=== PATIENT | male | born 1995 | race Caucasian/White ===

== ENCOUNTER 2017-10-09 16:40 | Emergency (ER) | payer BC ==
[2017-10-09 17:31] VITALS: BP 155/93
--- NOTE | 2017-10-09 17:41 | ED ---
Throat Pain/Nasal Congestion - HPI Summary HPI Summary: 22 yr old male with cough for over a week, and today has sore throat and also earache. He has been coughing hard. Pain in throat and ear moderate. No drooling, no stridor, no trouble breathing. No other complaints. - History of Current Complaint Chief Complaint: UCRespiratory Time Seen by Provider: 10/09/17 17:28 - Allergies/Home Medications Allergies/Adverse Reactions: Allergies Allergy/AdvReac Type Severity Reaction Status Date / Time MS Clindamycin Allergy Mild Rash Verified 10/09/17 17:31 [From Cleocin HCl] MS Erythromycin Allergy Mild Rash Verified 10/09/17 17:31 [Erythromycin] Nuts Allergy Severe Swelling Uncoded 10/09/17 17:31 Of Face,Lips,& Throat PMH/Surg Hx/FS Hx/Imm Hx Respiratory History: Reports: Hx Asthma Infectious Disease History: No Infectious Disease History: Denies: Traveled Outside the [place] in Last 30 Days - Family History Known Family History: Positive: None - Social History Occupation: Student Lives: With Family Alcohol Use: Rare Substance Use Type: Reports: None Smoking Status (MU): Never Smoked Tobacco Review of Systems Positive: Fatigue Positive: Sore Throat, Ear Ache Positive: Cough All Other Systems Reviewed And Are Negative: Yes Physical Exam Triage Information Reviewed: Yes Vital Signs On Initial Exam: Initial Vitals Temp Pulse Resp BP Pulse Ox 98.5 F 95 16 155/93 100 10/09/17 17:24 10/09/17 17:24 10/09/17 17:24 10/09/17 17:24 10/09/17 17:24 Vital Signs Reviewed: Yes Appearance: Positive: Well-Appearing, No Pain Distress Skin: Positive: Warm, Skin Color Reflects Adequate Perfusion Head/Face: Positive: Normal Head/Face Inspection Eyes: Positive: EOMI ENT: Positive: Pharyngeal erythema, TM red - right with effusion Neck: Positive: Nontender Respiratory/Lung Sounds: Positive: Clear to Auscultation, Breath Sounds Present Cardiovascular: Positive: Normal, RRR. Negative: Murmur Abdomen Description: Positive: Nontender Musculoskeletal: Positive: Strength/ROM Intact Neurological: Positive: Sensory/Motor Intact, Alert, Oriented to Person Place, Time, CN Intact II-III Psychiatric: Positive: Normal - Lázaro Coma Scale Best Eye Response: 4 - Spontaneous Best Motor Response: 6 - Obeys Commands Best Verbal Response: 5 - Oriented Coma Scale Total: 15 Diagnostics - Vital Signs Vital Signs Temp Pulse Resp BP Pulse Ox 10/09/17 17:24 98.5 F 95 16 155/93 100 - Laboratory Lab Statement: Any lab studies that have been ordered have been reviewed, and results considered in the medical decision making process. EENT Course/Dx - Course Course Of Treatment: 22 yr old with right OM and also a sore throat. Plan DC to home on Augmentin. Fu with PMD. - Diagnoses Provider Diagnoses: Pharyngitis, Otitis media Discharge - Discharge Plan Condition: Good Disposition: HOME Prescriptions: Amoxicillin/Clavulanate TAB* [Augmentin TAB 875*] 875 mg PO BID #20 tab Patient Education Materials: Ear Infection (ED), Pharyngitis (ED) Forms: *Work Release, *School Release Referrals: Brice Burris DO [Primary Care Provider] -
== END 2017-10-09 17:47 | disposition home or self-care (01) ==
LOC: UCCORT 16:40
DX: J02.9 Acute pharyngitis, unspecified (principal); H66.91 Otitis media, unspecified, right ear; R53.83 Other fatigue; R05 Cough; J45.909 Unspecified asthma, uncomplicated; Z88.1 Allergy status to other antibiotic agents; Z91.018 Allergy to other foods
CPT/HCPCS: 99212; G0463

== ENCOUNTER 2019-11-12 19:29 | Emergency (ER) | payer OTHER ==
[2019-11-12 22:01] VITALS: BP 134/78
[2019-11-12 22:19] LABS: Influenza A Molecular Negative (Negative); Influenza B Molecular Negative (Negative)
--- NOTE | 2019-11-12 22:19 | UC ---
FLU HPI - HPI Summary HPI Summary: 24-year-old male presents with 4 day history of general malaise, fatigue, headache, body aches, nasal congestion, sinus pressure, nasal drip, mild shortness of breath, nonproductive cough, mild nausea, and couple episodes of loose stool. No measured fever however states has been feeling hot and cold. History of asthma but states he has not had to use his albuterol inhaler. Denies sore throat, dysphagia, ear pain, chest pain, abdominal pain, or vomiting. - History of Current Complaint Chief Complaint: UCRespiratory Stated Complaint: COUGH, CONGESTION Time Seen by Provider: 11/12/19 22:00 Hx Obtained From: Patient Pain Intensity: 6 - Allergy/Home Medications Allergies/Adverse Reactions: Allergies Allergy/AdvReac Type Severity Reaction Status Date / Time almond Allergy Rash, Verified 11/12/19 21:56 Swelling of the Face, Lips, and Throat banana Allergy Anaphylatic Verified 11/12/19 21:56 Shock clindamycin Allergy Rash Verified 11/12/19 21:56 erythromycin base Allergy Rash Verified 11/12/19 21:56 pecan nut Allergy Rash, Verified 11/12/19 21:56 Swelling of the Face, Lips, and Throat walnut Allergy Rash, Verified 11/12/19 21:56 Swelling of the Face, Lips, and Throat Home Medications: Home Medications Albuterol HFA INHALER* [Proair HFA Inhaler*] 2 puff INH Q6H PRN 07/31/12 [ History Confirmed 11/12/19] EPINEPHrine PEN ADULT(NF) [Epipen*] 0.3 mg IM ONCE 07/31/12 [History Confirmed 11/12/19] Albuterol 2.5MG/3ML (0.083%)* [Ventolin 2.5 MG/3 ML NEB.LANDRY*] 2.5 mg INH Q6H PRN 11/12/19 [History Confirmed 11/12/19] PMH/Surg Hx/FS Hx/Imm Hx Respiratory History: Asthma - Surgical History Surgical History: Yes Surgery Procedure, Year, and Place: T&A, ~2006, [place] - Family History Family History: Denies significant FMH - Social History Occupation: Employed Full-time Lives: With Family Alcohol Use: Occasionally Substance Use Type: None Smoking Status (MU): Current Some Day Smoker - Immunization History Vaccination Up to Date: Yes Review of Systems All Other Systems Reviewed And Are Negative: Yes Constitutional: Positive: Fever - Subjective, Chills, Fatigue Skin: Negative: Rash Eyes: Negative: Drainage, Eye Redness ENT: Positive: Sore Throat, Nasal Discharge, Sinus Congestion, Sinus Pain/ Tenderness. Negative: Ear Ache Respiratory: Positive: Shortness Of Breath, Cough Cardiovascular: Negative: Chest Pain Gastrointestinal: Positive: Diarrhea, Nausea. Negative: Abdominal Pain, Vomiting Genitourinary: Positive: Negative Musculoskeletal: Positive: Myalgia Neurological/Mental Status: Positive: Headache Is Patient Immunocompromised?: No Physical Exam - Summary Physical Exam Summary: GENERAL APPEARANCE: Well developed, well nourished, alert and cooperative, and appears to be in no acute distress. EYES: Conjunctiva clear. No drainage. EARS: External auditory canals and tympanic membranes clear, hearing grossly intact. NOSE: Moderate nasal congestion. No nasal discharge. Maxillary sinus tenderness. THROAT: Pharyngeal cobblestoning with postnasal drip. Surgically absent tonsils. Uvula midline. NECK: Neck supple, non-tender without lymphadenopathy. CARDIAC: Normal S1 and S2. No S3, S4 or murmurs. Rhythm is regular. There is no peripheral edema, cyanosis or pallor. Extremities are warm and well perfused. Capillary refill is less than 2 seconds. Peripheral pulses intact. LUNGS: Clear to auscultation without rales, rhonchi, wheezing or diminished breath sounds. Dry nonproductive cough. ABDOMEN: Positive bowel sounds. Soft, nondistended, nontender. No guarding or rebound. No masses or hepatosplenomegally. MUSKULOSKELETAL: ROM intact to all extremities. No joint erythema or tenderness. Normal muscular development. Normal gait. SKIN: Skin normal color, texture and turgor with no lesions or eruptions. Triage Information Reviewed: Yes Vital Signs: Initial Vital Signs Temp 97.6 F 11/12/19 21:52 Pulse 72 11/12/19 21:52 Resp 18 11/12/19 21:52 BP 134/78 11/12/19 21:52 Pulse Ox 99 11/12/19 21:52 Vital Signs Reviewed: Yes Flu Course/Dx - Course Course Of Treatment: 24-year-old male presents with 4 day history of general malaise, fatigue, headache, body aches, nasal congestion, sinus pressure, nasal drip, mild shortness of breath, nonproductive cough, mild nausea, and couple episodes of loose stool. No measured fever however states has been feeling hot and cold. History of asthma but states he has not had to use his albuterol inhaler. Denies sore throat, dysphagia, ear pain, chest pain, abdominal pain, or vomiting. Afebrile. Vital signs stable. Patient had moderate nasal congestion , normal TMs, pharyngeal cobblestoning or postnasal drip, no cervical lymphadenopathy, clear bilateral breath sounds, dry nonproductive cough, and otherwise unremarkable exam. Rapid flu test was negative. Reviewed results with the patient. Recommending symptomatic treatment for a viral upper respiratory infection. He is to follow-up with his primary care provider in 5- 7 days if symptoms are not improving. Anticipatory guidance and warning symptoms reviewed of the patient. Verbalizes understanding and agrees with plan of care. - Differential Dx/Diagnosis Differential Diagnosis/HQI/PQRI: Bronchitis, Influenza, Pneumonia, Upper Respiratory Infection Provider Diagnosis: Viral URI Discharge ED - Sign-Out/Discharge Documenting (check all that apply): Patient Departure All imaging exams completed and their final reports reviewed: No Studies - Discharge Plan Condition: Stable Disposition: HOME Patient Education Materials: Upper Respiratory Infection (ED) Referrals: Brice Burris DO [Primary Care Provider] - Additional Instructions: A rapid flu test performed in the clinic today was negative. Your history and exam are consistent with a viral upper respiratory infection. Viral infections do not respond to antibiotics and are limited to the treatment of symptoms. Viral infections typically run their course in 7-10 days. Drink plenty of fluids to avoid dehydration especially if you are running any fever. Use a saline rinse kit such as Neti Pot or NeilMed at least twice a day to help thin secretions and promote drainage of the sinuses. Use fluticasone (Flonase) nasal spray 2 sprays each nostril once daily. Take over the counter acetaminophen (Tylenol) or ibuprofen (Advil, Motrin) according to directions as needed for pain or fever. Use salt water gargles several times a day if you have a sore throat. You may also use Chloraseptic spray or Cepacol lonzenges according to directions which contain a numbing medication and can provide some temporary relief from your sore throat. Follow up with your primary care provider in 5-7 days if symptoms persist. Seek immediate medical attention in the emergency room if you have fever greater than 100.5 F despite taking acetaminophen or ibuprofen, have chest pain , difficulty breathing, are unable to swallow, or have any worsening of symptom - Billing Disposition and Condition Condition: STABLE Disposition: Home - Attestation Statements Provider Attestation: This patient was not seen by me. I was available for consult. Chart reviewed. GISELL
== END 2019-11-12 22:38 | disposition home or self-care (01) ==
LOC: UCCORT 19:29
DX: J06.9 Acute upper respiratory infection, unspecified (principal); J45.909 Unspecified asthma, uncomplicated; F17.200 Nicotine dependence, unspecified, uncomplicated; Z88.1 Allergy status to other antibiotic agents; Z91.010 Allergy to peanuts; Z91.018 Allergy to other foods
CPT/HCPCS: 99211; G0463

== ENCOUNTER 2019-12-09 12:48 | Emergency (ER) | payer OTHER ==
--- OUTSIDE RECORDS SUMMARY | 2019-12-09 12:55 | XMS REPORT | Continuity of Care Document ---
:1995 External Reference #:[id number] Author Name Brice Burris D.O. (transmitted by agent of provider Lyudmila Guzmán) Address [address] [place] [id number] Problems Active Problems Provider Date Vitamin D deficiency Jose Miguel White M.D. Onset: 02/13/2013 Pure hypercholesterolemia Jose Miguel White M.D. Onset: 02/13/2013 Allergic rhinitis Jose Miguel White M.D. Onset: 02/13/2013 Intrinsic asthma without status asthmaticus Jose Miguel White M.D. Onset: Obesity Jose Miguel White M.D. Onset: 02/13/2013 Mild intermittent asthma Brice Burris D.O. Onset: 12/11/2016 Backache Angelique Wylie PA Onset: 03/09/2017 Social History Type Date Description Comments Sex Unknown Tobacco Use Reviewed: 07/01/19 Denies Cigarette Use Cigarette Use passive smoke exposure from mom Smoking Status Reviewed: 09/11/19 Denies Cigarette Use ETOH Use 02/13/2013 Denies alcohol use Recreational Drug Use 02/13/2013 Denies Drug Use Tobacco Use Start: Unknown Non Smoker Sun Exposure Uses sunscreen Sun Exposure somethimes Seat Belt/Car Seat Seat Belt Use - Yes Bike Helmet Never Guns in Home Yes, Locked Up Smoke Alarms Yes smoke alarm Allergies, Adverse Reactions, Alerts Active Allergies Reaction Severity Comments Date Cleocin rash 02/13/2013 Amoxicillin rash 02/13/2013 Bananas 07/01/2019 Medications Active Medications SIG Qnty Indications Ordering Date Provider Hydroxyzine HCL 1 by mouth as 60tabs F43.23 Roseline Beltran 08/11/2019 needed for demetris Gonsales MD 25mg Tablets attacks, may increase to 2 if needed Epinephrine use as directed for 2units Cindy 12/24/2018 anaphylactic Boone Gillespie 0.3mg/0.3ML reactions Solution Auto-Inject Flonase Allergy 2 sprays twice a 47.400ml J01.00 Brice Burris, 2016 Relief day until better. D.O. 50mcg/Act Suspension J30.9 Albuterol Sulfate inhale the 50units J45.21 Jose Miguel White, 01/11/2014 (2.5mg/3ML) contents of 1 M.D. 0.083% Nebulizer nebule up to every 4 hours as needed for cough, wheezing, sob Levocetirizine Take 1 Tablet By 90tabs J30.9 Jose Miguel White, 08/17/2012 Dihydrochloride Mouth Every Day as M.D. 5mg Tablets Needed For Allergies Ventolin HFA inhale 2 puffs 18gm J45.20 Jose Miguel White, 05/26/2012 108(90Base) every 4 hours if M.D. mcg/Act Aerosol needed for asthma symptoms J45.21 Advair HFA 115-21mcg/Act Aerosol Unknown History Medications Escitalopram Oxalate 1.5 by mouth every 45tabs F43.23 Cindy, 08/04/2019 - day Boone Gillespie 08/24/2019 10mg Tablets Escitalopram Oxalate 1 tab every 14tabs F43.23 Cindy, 07/17/2019 - morning for Boone Gillespie 08/04/2019 5mg Tablets depression x 3 days, if tolerating, increase to two tabs in the morning Oseltamivir 1 capsule by mouth 10caps Unknown 07/08/2019 - Phosphate twice daily x 5 07/13/2019 75mg days Capsules Prednisone TK 1 T PO bid Unknown 07/08/2019 - 20mg 07/12/2019 Tablets Azithromycin 2 tabs day one and 6tabs Cindy, 07/08/2019 - 250mg 1 tab days 2-5 Boone Gillespie 07/14/2019 Tablets Azithromycin 2 tabs by mouth 6tabs J20.9 Cindy, 07/01/2019 - 250mg daily x1 day then Boone Gillespie 07/07/2019 Tablets 1 tab by mouth daily x4 days Prednisone 2 tab by mouth 10tabs J45.901 Cindy, 07/01/2019 - 20mg daily x5 days Boone Gillespie 07/09/2019 Tablets Immunizations CPT Code Status Date Vaccine Lot # [id number] Given 07/17/2019 Influenza Virus Vaccine, Quadrivalent, Split, [id number] Preservative Free 64721 Given 04/23/2017 Influenza Virus Vaccine, Quadrivalent, Split, [id number] Preservative Free 10520 Given 06/12/2016 Influenza Virus Vaccine, Quadrivalent, Split, [id number] Preservative Free 44647 Given 06/15/2015 Influenza Virus Vaccine, Quadrivalent, Split, [id number] Preservative Free 31431 Given 07/14/2014 Influenza Virus Vaccine, Quadrivalent, Split, [id number] Preservative Free 93814 Given 07/14/2014 Hep A, Ped/Adolscent, 2 Dose [id number] 78645 Given 06/15/2013 Hep A, Ped/Adolscent, 2 Dose [id number] 27598 Given 06/15/2013 Menactra Menningitis Vaccine [id number] 97237 Given 06/15/2013 Flu, Split Virus 3Yrs [id number] 62843 Given 02/13/2013 Gardasil HPV vaccine [id number] 31030 Given 09/22/2012 Pneumococcal Immunization 91957 Given 06/12/2012 Flu, Split Virus 3Yrs 51693 Given 05/03/2011 Flu, Split Virus 3Yrs 99922 Given 07/05/2010 Flu, Split Virus 3Yrs 15028 Given 07/04/2009 Flu, Split Virus 3Yrs 51142 Given 07/08/2008 Flu, Split Virus 3Yrs 21795 Given 04/22/2008 Menactra Menningitis Vaccine 76466 Given 04/22/2008 Adacel or Boostrix, [id number] 67787 Given 08/05/2007 Flu, Split Virus 3Yrs 54300 Given 06/28/2006 Flu, Split Virus 3Yrs 74900 Given 07/27/2003 Flu, Split Virus 3Yrs 92082 Given 04/10/2001 Poliomyelitis Immunization 66751 Given 04/10/2001 MMR Virus Immunization 04104 Given 04/10/2001 Dtap Immunization (Tripedia) (Infanrix) 27812 Given 05/24/1998 Poliomyelitis Immunization 78265 Given 05/24/1998 Dtap Immunization (Tripedia) (Infanrix) 96941 Given 02/02/1998 Varicella (Chicken Pox) Immunization 38432 Given 02/02/1998 MMR Virus Immunization 01773 Given 04/06/1997 Hep B Immunization, Ped/Adolescent To 11 Yrs 52199 Given 04/06/1997 Dtap Immunization (Tripedia) (Infanrix) 98071 Given 04/04/1997 3 dose Hib (PRP-Omp) 79019 Given 02/09/1997 Dtap Immunization (Tripedia) (Infanrix) 09611 Given 02/09/1997 3 dose Hib (PRP-Omp) 72730 Given 02/09/1997 Poliomyelitis Immunization 80143 Given 1996 Hep B Immunization, Ped/Adolescent To 11 Yrs 78904 Given 1996 Poliomyelitis Immunization 54968 Given 1996 Dtap Immunization (Tripedia) (Infanrix) 90491 Given 1996 3 dose Hib (PRP-Omp) 69735 Given 1996 Hep B Immunization, Ped/Adolescent To 11 Yrs 25063 Refused 06/15/2013 Gardasil HPV vaccine Vital Signs Date Vital Result Comment 11/20/2019 9:42am BP Systolic 130 mmHg BP Diastolic 96 mmHg Body Temperature 97.6 F Weight 201.50 lb 09/11/2019 12:56pm BP Systolic 132 mmHg BP Diastolic 82 mmHg Height 71.25 inches 5'11.25" w/shoes Weight 201.00 lb w/shoes BMI (Body Mass Index) 27.8 kg/m2 Results Test Acquired Date Facility Test Result H/L Range Note Rapid Influenza 11/12/2019 [facility] Influenza A Negative Negative A & B Molecular [phone] Molecular Influenza B Molecular Negative Negative 1 Laboratory test 09/08/2019 [facility] TSH (Thyroid 1.09 mcIU/mL Normal 0.34-5.60 finding [phone] Stim Horm) Thyroxine 7.62 g/dL Normal 6.09-12.23 T3 Total 111 ng/dL Normal 87-178 T3 Free 3.40 pg/mL Normal 2.5-3.9 Laboratory 07/08/2019 [facility] Lactic 2.5 Critical 0.4- 1.9 2, 3 test finding LABORATORY Acid mmol/L high [phone] Lactic Acid 07/08/2019 Pending Sale To [facility]. Lactic 2.0 Critical 0.4- 1.9 LABORATORY Acid mmol/L high [phone] Lab Reflex >2.0 for Sepsis? Y CBC 07/08/2019 Pending Sale To [facility]. White Blood Count 7.4 K/uL Normal 3.4-10.5 LABORATORY [phone] Red Blood Count 4.88 M/uL Normal 4.20-5.80 Hemoglobin 13.3 gm/dL Normal 12.8-17.0 Hematocrit 42.0 % Normal 38.0-48.0 Mean Cell Volume 86.1 fl Normal 80.0-96.0 Mean Corpuscular HGB 27.3 pg Normal 27.0-33.0 Mean Corpuscular HGB Conc 31.7 g/dL Normal 31.7-36.0 Platelet Count 366 K/uL High 155-360 Red Cell Distri Width SD 44.7 fl Normal 36-51 Red Cell Distri Width %CV 14.1 % Normal 11.6-15.8 Mean Platelet Volume 10.5 fl Normal 6.6-10.6 NRBC % 0.0 /100WBC < 10/ 100 WBC Basic Metabolic 07/08/2019 Pending Sale To [facility] Glucose 116 mg/dL High 74-106 Panel LABORATORY [phone] BUN 11 mg/dL Normal 7-18 Creatinine 0.8 mg/dL Normal 0.6-1.3 Glom Filtration Rate, Estimate >60 mL/min >60 If >60 mL/min >60 4 BUN/Creat 13.7 ratio Sodium 139 mmol/L Normal 136-145 Potassium 4.1 mmol/L Normal 3.5-5.1 Chloride 107 mmol/L Normal 98-107 Carbon Dioxide 25 mmol/L Normal 21-32 Anion Gap 7 mEq/L Low 8-16 Calcium 8.8 mg/dL Normal 8.5-10.1 Differential-WBC 07/07/2019 Pending Sale To [facility] Total Cells 100 #CELLS Confirm LABORATORY Counted [phone] Neutrophils% 68 % Normal 33-73 Lymph% 24 % Normal 20-42 Monocyte% 8 % Normal 0-10 Platelet Estimate NORMAL Toxic Granulation 0-1+ Laboratory test 07/07/2019 Pending [facility] To [facility]. Slide Review DIFF ORDERED finding LABORATORY [phone] CBS W/Automated 07/07/2019 Pending Sale To [facility] White Blood 6.3 K/uL Normal 3.4-1 Diff LABORATORY Count 0.5 [phone] Red Blood Count 4.54 M/uL Normal 4.20-5.80 Hemoglobin 12.9 gm/dL Normal 12.8-17.0 Hematocrit 38.8 % Normal 38.0-48.0 Mean Cell Volume 85.5 fl Normal 80.0-96.0 Mean Corpuscular HGB 28.4 pg Normal 27.0-33.0 Mean Corpuscular HGB Conc 33.2 g/dL Normal 31.7-36.0 Platelet Count 307 K/uL Normal 155-360 Red Cell Distri Width SD 43.8 fl Normal 36-51 Red Cell Distri Width %CV 14.2 % Normal 11.6-15.8 Mean Platelet Volume 10.1 fl Normal 6.6-10.6 Neut% 68.5 % Normal 33.0-73.0 Lymph % 17.9 % Low 20.0-42.0 [place] % 13.1 % High 0.0-10.0 Eo% 0.0 % Normal 0.0-6.6 Bas% 0.0 % Normal 0.0-1.1 Immature Grans 0.5 % Normal 0.0-5.0 NRBC % 0.0 /100WBC < 10/ 100 WBC Neut# 4.28 K/uL Normal 1.8-7.0 Lymph # 1.12 K/uL Normal 1.0-4.0 [place] # 0.82 K/uL High 0.0-0.8 Eos # 0.00 K/uL Normal 0.0-0.5 Baso # 0.00 K/uL Normal 0.0-0.1 Immature Grans Absolute 0.03 K/uL NRBC # 0.00 K/uL Basic Metabolic 07/07/2019 Pending Sale To [facility] Glucose 121 mg/dL High 74-106 Panel LABORATORY [phone] BUN 8 mg/dL Normal 7-18 Creatinine 0.9 mg/dL Normal 0.6-1.3 Glom Filtration Rate, Estimate >60 mL/min >60 If >60 mL/min >60 5 BUN/Creat 8.8 ratio Sodium 142 mmol/L Normal 136-145 Potassium 3.8 mmol/L Normal 3.5-5.1 Chloride 111 mmol/L High 98-107 Carbon Dioxide 24 mmol/L Normal 21-32 Anion Gap 7 mEq/L Low 8-16 Calcium 8.6 mg/dL Normal 8.5-10.1 Aot Request 07/07/2019 Pending Sale To [facility]. Aot Request Unable to add te 6 LABORATORY <SEE NOTE> [phone] Tests to be added: lactic acid leve <SEE NOTE> 7 Instructions: pls do if not do <SEE NOTE> 8 Lactic Acid 07/07/2019 [facility] Lactic Acid 3.1 mmol/L Critical 0.4-1.9 LABORATORY high [phone] Lab Reflex >2.0 for Sepsis? N Lactic Acid 07/07/2019 [facility] Lactic Acid 2.9 mmol/L Critical 0.4-1.9 LABORATORY high [phone] Lab Reflex >2.0 for Sepsis? Y Laboratory 07/07/2019 [facility] Lactic 3.1 mmol/L Critical 0.4-1.9 9 test finding LABORATORY Acid high [phone] Laboratory 07/06/2019 [facility] Lactic 2.9 mmol/L Critical 0.4-1.9 test finding LABORATORY Acid high [phone] Lactic Acid 07/06/2019 [facility] Lactic 4.1 mmol/L Critical 0.4-1.9 LABORATORY Acid high [phone] Lab Reflex >2.0 for Sepsis? Y Laboratory 07/06/2019 [facility] Lactic Acid 3.0 mmol/L Critical 0.4-1.9 test finding LABORATORY high [phone] Influenza A/B 07/06/2019 Pending Sale To [facility]. Influenza A POSITIVE Abnormal (Negative 10 Antigen LABORATORY Antigen ) [phone] Influenza B Antigen Negative (Negative) 11 Lactic Acid 07/06/2019 [facility] Lactic Acid 2.4 mmol/L Critical 0.4-1.9 LABORATORY high [phone] Lab Reflex >2.0 for Sepsis? Y Laboratory 07/06/2019 Pending Sale To [facility] Legionella Negative Negative 12 test finding LABORATORY Urinary [phone] Antigen Blood Culture 07/06/2019 Pending Sale To [facility] Blood Culture NO GROWTH: 13, LABORATORY Aerobic FINAL <SEE 14 [phone] NOTE> Blood Culture Anaerobic NO GROWTH: FINAL <SEE NOTE> 15 CBS W/Automated 07/06/2019 Pending Sale To [facility] White 5.9 K/uL Normal 3.4-10.5 16 Diff LABORATORY Blood [phone] Count Red Blood Count 4.99 M/uL Normal 4.20-5.80 Hemoglobin 13.8 gm/dL Normal 12.8-17.0 Hematocrit 42.1 % Normal 38.0-48.0 Mean Cell Volume 84.4 fl Normal 80.0-96.0 Mean Corpuscular HGB 27.7 pg Normal 27.0-33.0 Mean Corpuscular HGB Conc 32.8 g/dL Normal 31.7-36.0 Platelet Count 290 K/uL Normal 155-360 Red Cell Distri Width SD 42.1 fl Normal 36-51 Red Cell Distri Width %CV 13.7 % Normal 11.6-15.8 Mean Platelet Volume 9.8 fl Normal 6.6-10.6 Neut% 73.0 % Normal 33.0-73.0 Lymph % 14.5 % Low 20.0-42.0 [place] % 10.5 % High 0.0-10.0 Eo% 1.0 % Normal 0.0-6.6 Bas% 0.5 % Normal 0.0-1.1 Immature Grans 0.5 % Normal 0.0-5.0 NRBC % 0.0 /100WBC < 10/ 100 WBC Neut# 4.32 K/uL Normal 1.8-7.0 Lymph # 0.86 K/uL Low 1.0-4.0 [place] # 0.62 K/uL Normal 0.0-0.8 Eos # 0.06 K/uL Normal 0.0-0.5 Baso # 0.03 K/uL Normal 0.0-0.1 Immature Grans Absolute 0.03 K/uL NRBC # 0.00 K/uL Comprehensive 07/06/2019 [facility] Glucose 103 mg/dL Normal 74-106 Metabolic Panel LABORATORY [phone] BUN 16 mg/dL Normal 7-18 Creatinine 1.3 mg/dL Normal 0.6-1.3 Glom Filtration Rate, Estimate >60 mL/min >60 If >60 mL/min >60 17 BUN/Creat 12.3 ratio Sodium 138 mmol/L Normal 136-145 Potassium 3.3 mmol/L Low 3.5-5.1 Chloride 107 mmol/L Normal 98-107 Carbon Dioxide 22 mmol/L Normal 21-32 Anion Gap 9 mEq/L Normal 8-16 Calcium 8.5 mg/dL Normal 8.5-10.1 Total Protein 7.4 g/dL Normal 6.4-8.2 Albumin 3.5 g/dL Normal 3.4-5.0 Globulin 3.9 g/dL Normal 1.9-4.3 Alb/Glob 0.9 ratio Bilirubin,Total 0.5 mg/dL Normal 0.2-1.0 Sgot/Ast 11 U/L Low 15-37 18 SGPT/Alt 20 U/L Normal 12-78 Alkaline Phosphatase 75 U/L Normal 45-117 1 Smooth Stucco Resurfacer: [id number] 2 CAP, INFLU A, ACUTE HRF 3 CHECKED CALLED ANKITA Shay WITH LACTIC ACID AT 1003 07/08/19 4 Note: Persistent reduction for 3 months or more in an eGFR <60 mL/min/1.73 m2 defines CKD. Patients with eGFR values >/=60 mL/min/1.73 m2 may also have CKD if evidence of persistent proteinuria is present. The original MDRD equation for estimated GFR is not valid for patients less than 18 years of age. Additional information may be found at www.kdoqi.org. 5 Note: Persistent reduction for 3 months or more in an eGFR <60 mL/min/1.73 m2 defines CKD. Patients with eGFR values >/=60 mL/min/1.73 m2 may also have CKD if evidence of persistent proteinuria is present. The original MDRD equation for estimated GFR is not valid for patients less than 18 years of age. Additional information may be found at www.kdoqi.org. 6 Unable to add tests Tests: lactic acid level Instructions: pls do if not done this AM 7 lactic acid level 8 pls do if not done this AM 9 Specimen slightly Hemolyzed, interpret with caution 10 SOB 11 Please Note: A POSITIVE result for influenza A and/or B antigen does not rule out a co-infection with other pathogens or identify any specific influenza A virus subtype. A NEGATIVE result for influenza A and/or B antigen does not preclude influenza virus infection and should not be the sole basis for treatment or other management decisions, since the antigen present in the specimen may be below the detection limit of the test. A NEGATIVE result is PRESUMPTIVE and it is recommended these results be confirmed by virus culture or an FDA-cleared influenza A and B molecular assay. Method: EatWith Chromatographic immunoassay 12 Presumptive negative for L. pneumophila serogroup 1 antigen in urine, suggesting no recent or current infection. Legionnaires' disease cannot be ruled out since other serogroups and species may also cause disease. 13 CAP, INFLU A, ACUTE HRF 14 NO GROWTH: FINAL REPORT 15 NO GROWTH: FINAL REPORT 16 SOB 17 Note: Persistent reduction for 3 months or more in an eGFR <60 mL/min/1.73 m2 defines CKD. Patients with eGFR values >/=60 mL/min/1.73 m2 may also have CKD if evidence of persistent proteinuria is present. The original MDRD equation for estimated GFR is not valid for patients less than 18 years of age. Additional information may be found at www.kdoqi.org. 18 Values below the stated reference ranges of AST and ALT can be seen in normal populations. Clinical correlation is suggested. Procedures Date Code Description Status 07/17/2019 82199 Brief Emotional/Behav Assessment W/ Scoring Doc Per Completed Standard Inst Medical Devices Description No Information Available Encounters Type Date Location Provider Dx Diagnosis Office Visit 11/20/2019 Main Office Brice Burris, J45.20 Mild intermittent 9:45a D.O. asthma, uncomplicated Office Visit 09/11/2019 Main Office Roseline Beltran, F43.23 Adjustment disorder 12:55p with mixed anxiety and depressed mood Z68.27 Body mass index (BMI) 27.0-27.9, adult Office Visit 08/11/2019 9:00a Main Office Minal Walker F43.23 Adjustment disorder P.A. with mixed anxiety and depressed mood J45.20 Mild intermittent asthma, uncomplicated J30.9 Allergic rhinitis, unspecified Office Visit 07/17/2019 11:20a Main Office Minal Walker, J18.9 Pneumonia, P.A. unspecified organism J45.20 Mild intermittent asthma, uncomplicated J30.9 Allergic rhinitis, unspecified F43.23 Adjustment disorder with mixed anxiety and depressed mood Z23 Encounter for immunization Z13.31 Encounter for screening for depression Office Visit 07/10/2019 3:20p Main Office Minal Walker, J45.901 Unspecified asthma P.A. with (acute) exacerbation J18.9 Pneumonia, unspecified organism I10 Essential (primary) hypertension Office Visit 07/01/2019 2:00p Main Office Angelique Wylie, J45.901 Unspecified asthma PA with (acute) exacerbation J20.9 Acute bronchitis, unspecified Z68.27 Body mass index (BMI) 27.0-27.9, adult Assessments Date Code Description Provider 11/20/2019 J45.20 Mild intermittent asthma, uncomplicated Brice Burris DLeslyO. 09/11/2019 F43.23 Adjustment disorder with mixed anxiety and Roseline Beltran MD depressed mood 09/11/2019 Z68.27 Body mass index (BMI) 27.0-27.9, adult Roseline Beltran MD 08/11/2019 F43.23 Adjustment disorder with mixed anxiety and Minal [place], P.A. depressed mood 08/11/2019 J45.20 Mild intermittent asthma, uncomplicated Minal [place], P.A. 08/11/2019 J30.9 Allergic rhinitis, unspecified Minal [place], P.A. 07/17/2019 J18.9 Pneumonia, unspecified organism Minal [place], P.A. 07/17/2019 J45.20 Mild intermittent asthma, uncomplicated Minal [place], P.A. 07/17/2019 J30.9 Allergic rhinitis, unspecified Minal [place], P.A. 07/17/2019 F43.23 Adjustment disorder with mixed anxiety and Minal [place], P.A. depressed mood 07/17/2019 Z23 Encounter for immunization Minal [place], P.A. 07/17/2019 Z13.31 Encounter for screening for depression Minal [place], P.A. 07/10/2019 J45.901 Unspecified asthma with (acute) exacerbation Minal [place], P.A. 07/10/2019 J18.9 Pneumonia, unspecified organism Gladys Knight 07/10/2019 I10 Essential (primary) hypertension Gladys Knight 07/01/2019 J45.901 Unspecified asthma with (acute) exacerbation Angelique Wylie PA 07/01/2019 J20.9 Acute bronchitis, unspecified Angelique Wylie PA 07/01/2019 Z68.27 Body mass index (BMI) 27.0-27.9, adult Angelique Wylie PA Plan of Treatment Future Appointment(s):09/12/2020 9:00 am - Roseline Beltran MD at [id number] - Brice Burris D.O.J45.20 Mild intermittent asthma, uncomplicatedFollow up:As scheduled in September for well visit. Functional Status Description No Information Available Mental Status Description No Information Available Referrals Description No Information Available
--- OUTSIDE RECORDS SUMMARY | 2019-12-09 12:55 | XMS REPORT | Continuity of Care Document ---
:1995 External Reference #:[id number] Author Name Brice Burris D.O. (transmitted by agent of provider Pat Robbins) Address [address] [place] [id number] Problems Active Problems Provider Date Vitamin D [...] Allergy 2 sprays twice a 47.400ml J01.00 Earleneluis Brice, 2016 Relief day until better. D.O. 50mcg/Act [...] CPT Code Status Date Vaccine Lot # [id number] Given 07/17/2019 Influenza Virus Vaccine, Quadrivalent, Split, [id number] Preservative Free 87144 Given 04/23/2017 Influenza Virus Vaccine, Quadrivalent, Split, [id number] Preservative Free 61251 Given 06/12/2016 Influenza Virus Vaccine, Quadrivalent, Split, [id number] Preservative Free 46457 Given 06/15/2015 Influenza Virus Vaccine, Quadrivalent, Split, [id number] Preservative Free 73191 Given 07/14/2014 Influenza Virus Vaccine, Quadrivalent, Split, [id number] Preservative Free 45836 Given 07/14/2014 Hep A, Ped/Adolscent, 2 Dose [id number] 14867 Given 06/15/2013 Hep A, Ped/Adolscent, 2 Dose [id number] 83692 Given 06/15/2013 Menactra Menningitis Vaccine [id number] 45250 Given 06/15/2013 Flu, Split Virus 3Yrs [id number] 86785 Given 02/13/2013 Gardasil HPV vaccine [id number] 11718 Given 09/22/2012 Pneumococcal Immunization 57226 Given 06/12/2012 Flu, Split Virus 3Yrs 58584 Given 05/03/2011 Flu, Split Virus 3Yrs 65550 Given 07/05/2010 Flu, Split Virus 3Yrs 71290 Given 07/04/2009 Flu, Split Virus 3Yrs 83136 Given 07/08/2008 Flu, Split Virus 3Yrs 44811 Given 04/22/2008 Menactra Menningitis Vaccine 37921 Given 04/22/2008 Adacel or Boostrix, TDaP 56308 Given 08/05/2007 Flu, Split Virus 3Yrs 63995 Given 06/28/2006 Flu, Split Virus 3Yrs 18667 Given 07/27/2003 Flu, Split Virus 3Yrs 88124 Given 04/10/2001 Poliomyelitis Immunization 82597 Given 04/10/2001 MMR Virus Immunization 46760 Given 04/10/2001 Dtap Immunization (Tripedia) (Infanrix) 32210 Given 05/24/1998 Poliomyelitis Immunization 30995 Given 05/24/1998 Dtap Immunization (Tripedia) (Infanrix) 10421 Given 02/02/1998 Varicella (Chicken Pox) Immunization 97678 Given 02/02/1998 MMR Virus Immunization 86805 Given 04/06/1997 Hep B Immunization, Ped/Adolescent To 11 Yrs 96137 Given 04/06/1997 Dtap Immunization (Tripedia) (Infanrix) 84886 Given 04/04/1997 3 dose Hib (PRP-Omp) 07376 Given 02/09/1997 Dtap Immunization (Tripedia) (Infanrix) 87077 Given 02/09/1997 3 dose Hib (PRP-Omp) 32202 Given 02/09/1997 Poliomyelitis Immunization 15948 Given 1996 Hep B Immunization, Ped/Adolescent To 11 Yrs 53799 Given 1996 Poliomyelitis Immunization 92387 Given 1996 Dtap Immunization (Tripedia) (Infanrix) 12426 Given 1996 3 dose Hib (PRP-Omp) 79633 Given 1996 Hep B Immunization, Ped/Adolescent To 11 Yrs 42618 Refused 06/15/2013 Gardasil HPV vaccine Vital Signs [...] Result H/L Range Note Rapid Influenza 11/12/2019 [facility] Influenza A Negative Negative A & B Molecular [phone] Molecular Influenza B Molecular Negative Negative 1 Laboratory test 09/08/2019 [facility] TSH (Thyroid 1.09 mcIU/mL Normal 0.34-5.60 finding [phone] Stim Horm) Thyroxine 7.62 g/dL Normal 6.09-12.23 T3 Total 111 ng/dL Normal 87-178 T3 Free 3.40 pg/mL Normal 2.5-3.9 Laboratory 07/08/2019 [facility] Lactic 2.5 Critical 0.4- 1.9 2, 3 test finding LABORATORY Acid mmol/L high [phone] Lactic Acid 07/08/2019 [facility]. Lactic 2.0 Critical 0.4- 1.9 LABORATORY Acid mmol/L high [phone] Lab Reflex >2.0 for Sepsis? Y CBC 07/08/2019 [facility]. White Blood Count 7.4 K/uL Normal 3.4-10.5 LABORATORY [phone] Red Blood Count 4.88 M/uL Normal 4.20-5.80 [...] < 10/ 100 WBC Basic Metabolic 07/08/2019 [facility] Glucose 116 mg/dL High 74-106 Panel LABORATORY [phone] BUN 11 mg/dL Normal 7-18 Creatinine 0.8 mg/dL Normal 0.6-1.3 Glom Filtration Rate, Estimate >60 mL/min >60 If >60 mL/min >60 4 BUN/Creat 13.7 ratio Sodium 139 mmol/L Normal 136-145 Potassium 4.1 mmol/L Normal 3.5-5.1 Chloride 107 mmol/L Normal 98-107 Carbon Dioxide 25 mmol/L Normal 21-32 Anion Gap 7 mEq/L Low 8-16 Calcium 8.8 mg/dL Normal 8.5-10.1 Differential-WBC 07/07/2019 [facility] Total Cells 100 #CELLS Confirm LABORATORY Counted [phone] Neutrophils% 68 % Normal 33-73 Lymph% 24 % Normal 20-42 Monocyte% 8 % Normal 0-10 Platelet Estimate NORMAL Toxic Granulation 0-1+ Laboratory test 07/07/2019 [facility]. Slide Review DIFF ORDERED finding LABORATORY [phone] CBS W/Automated 07/07/2019 [facility]. White Blood 6.3 K/uL Normal 3.4-1 Diff LABORATORY Count 0.5 [phone] Red Blood Count 4.54 M/uL Normal 4.20-5.80 [...] 33.0-73.0 Lymph % 17.9 % Low 20.0-42.0 Boyle % 13.1 % High 0.0-10.0 Eo% 0.0 % Normal 0.0-6.6 Bas% 0.0 % Normal 0.0-1.1 Immature Grans 0.5 % Normal 0.0-5.0 NRBC % 0.0 /100WBC < 10/ 100 WBC Neut# 4.28 K/uL Normal 1.8-7.0 Lymph # 1.12 K/uL Normal 1.0-4.0 Boyle # 0.82 K/uL High 0.0-0.8 Eos # 0.00 K/uL Normal 0.0-0.5 Baso # 0.00 K/uL Normal 0.0-0.1 Immature Grans Absolute 0.03 K/uL NRBC # 0.00 K/uL Basic Metabolic 07/07/2019 [facility]. Glucose 121 mg/dL High 74-106 Panel LABORATORY [phone] BUN 8 mg/dL Normal 7-18 Creatinine 0.9 mg/dL Normal 0.6-1.3 Glom Filtration Rate, Estimate >60 mL/min >60 If >60 mL/min >60 5 BUN/Creat 8.8 ratio Sodium 142 mmol/L Normal 136-145 Potassium 3.8 mmol/L Normal 3.5-5.1 Chloride 111 mmol/L High 98-107 Carbon Dioxide 24 mmol/L Normal 21-32 Anion Gap 7 mEq/L Low 8-16 Calcium 8.6 mg/dL Normal 8.5-10.1 Aot Request 07/07/2019 [facility]. Aot Request Unable to add te 6 LABORATORY <SEE NOTE> [phone] Tests to be added: lactic acid leve <SEE NOTE> 7 Instructions: pls do if not do <SEE NOTE> 8 Lactic Acid 07/07/2019 [facility] Lactic Acid 3.1 mmol/L Critical 0.4-1.9 LABORATORY high [phone] Lab Reflex >2.0 for Sepsis? N Lactic Acid 07/07/2019 [facility] Lactic Acid 2.9 mmol/L Critical 0.4-1.9 LABORATORY high [phone] Lab Reflex >2.0 for Sepsis? Y Laboratory 07/07/2019 [facility] Lactic 3.1 mmol/L Critical 0.4-1.9 9 test finding LABORATORY Acid high [phone] Laboratory 07/06/2019 [facility] Lactic 2.9 mmol/L Critical 0.4-1.9 test finding LABORATORY Acid high [phone] Lactic Acid 07/06/2019 [facility] Lactic 4.1 mmol/L Critical 0.4-1.9 LABORATORY Acid high [phone] Lab Reflex >2.0 for Sepsis? Y Laboratory 07/06/2019 [facility] Lactic Acid 3.0 mmol/L Critical 0.4-1.9 test finding LABORATORY high [phone] Influenza A/B 07/06/2019 [facility]. Influenza A POSITIVE Abnormal (Negative 10 Antigen LABORATORY Antigen ) [phone] Influenza B Antigen Negative (Negative) 11 Lactic Acid 07/06/2019 [facility] Lactic Acid 2.4 mmol/L Critical 0.4-1.9 LABORATORY high [phone] Lab Reflex >2.0 for Sepsis? Y Laboratory 07/06/2019 [facility] Legionella Negative Negative 12 test finding LABORATORY Urinary [phone] Antigen Blood Culture 07/06/2019 [facility]. Blood Culture NO GROWTH: 13, LABORATORY Aerobic FINAL <SEE 14 [phone] NOTE> Blood Culture Anaerobic NO GROWTH: FINAL <SEE NOTE> 15 CBS W/Automated 07/06/2019 [facility] White 5.9 K/uL Normal 3.4-10.5 16 Diff LABORATORY Blood [phone] Count Red Blood Count 4.99 M/uL Normal [...] 33.0-73.0 Lymph % 14.5 % Low 20.0-42.0 Boyle % 10.5 % High 0.0-10.0 Eo% 1.0 % Normal 0.0-6.6 Bas% 0.5 % Normal 0.0-1.1 Immature Grans 0.5 % Normal 0.0-5.0 NRBC % 0.0 /100WBC < 10/ 100 WBC Neut# 4.32 K/uL Normal 1.8-7.0 Lymph # 0.86 K/uL Low 1.0-4.0 Boyle # 0.62 K/uL Normal 0.0-0.8 Eos # 0.06 K/uL Normal 0.0-0.5 Baso # 0.03 K/uL Normal 0.0-0.1 Immature Grans Absolute 0.03 K/uL NRBC # 0.00 K/uL Comprehensive 07/06/2019 [facility] Glucose 103 mg/dL Normal 74-106 Metabolic Panel LABORATORY [phone] BUN 16 mg/dL Normal 7-18 Creatinine 1.3 [...] Alkaline Phosphatase 75 U/L Normal 45-117 1 Damper Maker: [id number] 2 CAP, INFLU A, ACUTE HRF 3 [...] influenza A and B molecular assay. Method: [employer] Chromatographic immunoassay 12 Presumptive negative for L. [...] suggested. Procedures Date Code Description Status 07/17/2019 82100 Brief Emotional/Behav Assessment W/ Scoring Doc Per Completed Standard Inst Medical Devices Description No Information Available Encounters Type Date Location Provider Dx Diagnosis Office Visit 09/11/2019 Main Office Roseline Beltran F43.23 Adjustment disorder 12:55p with mixed anxiety and depressed mood Z68.27 Body mass index (BMI) 27.0-27.9, adult Office Visit 08/11/2019 9:00a Main Office Elan Knight3.23 Adjustment disorder P.A. with mixed anxiety and depressed mood J45.20 Mild intermittent asthma, uncomplicated J30.9 Allergic rhinitis, unspecified Office Visit 07/17/2019 11:20a Main Office Minal Walker J18.9 Pneumonia, P.A. unspecified organism J45.20 Mild intermittent asthma, uncomplicated J30.9 Allergic rhinitis, unspecified F43.23 Adjustment disorder with mixed anxiety and depressed mood Z23 Encounter for immunization Z13.31 Encounter for screening for depression Office Visit 07/10/2019 3:20p Main Office Minal Walker J45.901 Unspecified asthma P.A. with (acute) exacerbation J18.9 Pneumonia, unspecified organism I10 Essential (primary) hypertension Office Visit 07/01/2019 2:00p Main Office Angelique Wylie J45.901 Unspecified asthma PA with (acute) exacerbation J20.9 Acute bronchitis, unspecified Z68.27 Body mass index (BMI) 27.0-27.9, adult Assessments Date Code Description Provider 09/11/2019 F43.23 Adjustment disorder with mixed anxiety and Roseline Beltran MD depressed mood 09/11/2019 Z68.27 Body mass index (BMI) 27.0-27.9, adult Roseline Beltran MD 08/11/2019 F43.23 Adjustment disorder with mixed anxiety and Minal [place], P.A. depressed mood 08/11/2019 J45.20 Mild intermittent asthma, uncomplicated Minal [place], P.A. 08/11/2019 J30.9 Allergic rhinitis, unspecified Minal [place], P.A. 07/17/2019 J18.9 Pneumonia, unspecified organism Minal [place], P.A. 07/17/2019 J45.20 Mild intermittent asthma, uncomplicated Minal [place], P.A. 07/17/2019 J30.9 Allergic rhinitis, unspecified Minal [place], P.A. 07/17/2019 F43.23 Adjustment disorder with mixed anxiety and Minal [place], P.A. depressed mood 07/17/2019 Z23 Encounter for immunization Minal [place], P.A. 07/17/2019 Z13.31 Encounter for screening for depression Minal [place], P.A. 07/10/2019 J45.901 Unspecified asthma with (acute) exacerbation Minal [place], P.A. 07/10/2019 J18.9 Pneumonia, unspecified organism Minal [place], P.A. 07/10/2019 I10 Essential (primary) hypertension Minal [place], P.A. 07/01/2019 J45.901 Unspecified asthma with (acute) exacerbation Angelique Wylie PA 07/01/2019 J20.9 Acute bronchitis, unspecified Angelique Wylie PA 07/01/2019 Z68.27 Body mass index (BMI) 27.0-27.9, adult Angelique Wylie PA Plan of Treatment Future Appointment(s):09/12/2020 9:00 am - Roseline Beltran MD at Main Office Functional Status Description No Information Available Mental Status Description No Information Available Referrals Description No Information Available
--- OUTSIDE RECORDS SUMMARY | 2019-12-09 12:55 | XMS REPORT | Continuity of Care Document ---
:1996 External Reference #:[id number] Author Name Brice Burris D.O. (transmitted by agent of provider Pat Robbins) Address [address] [place] [id number] Problems Active Problems Provider Date Vitamin D [...] CPT Code Status Date Vaccine Lot # [id number] Given 07/17/2019 Influenza Virus Vaccine, Quadrivalent, Split, [id number] Preservative Free 75308 Given 04/23/2017 Influenza Virus Vaccine, Quadrivalent, Split, [id number] Preservative Free 21966 Given 06/12/2016 Influenza Virus Vaccine, Quadrivalent, Split, [id number] Preservative Free 38057 Given 06/15/2015 Influenza Virus Vaccine, Quadrivalent, Split, [id number] Preservative Free 77249 Given 07/14/2014 Influenza Virus Vaccine, Quadrivalent, Split, [id number] Preservative Free 65709 Given 07/14/2014 Hep A, Ped/Adolscent, 2 Dose [id number] 99081 Given 06/15/2013 Hep A, Ped/Adolscent, 2 Dose [id number] 23828 Given 06/15/2013 Menactra Menningitis Vaccine [id number] 54581 Given 06/15/2013 Flu, Split Virus 3Yrs [id number] 53369 Given 02/13/2013 Gardasil HPV vaccine [id number] 28839 Given 09/22/2012 Pneumococcal Immunization 52961 Given 06/12/2012 Flu, Split Virus 3Yrs 36384 Given 05/03/2011 Flu, Split Virus 3Yrs 07603 Given 07/05/2010 Flu, Split Virus 3Yrs 80729 Given 07/04/2009 Flu, Split Virus 3Yrs 06801 Given 07/08/2008 Flu, Split Virus 3Yrs 30728 Given 04/22/2008 Menactra Menningitis Vaccine 87656 Given 04/22/2008 Adacel or Boostrix, TDaP 12685 Given 08/05/2007 Flu, Split Virus 3Yrs 82410 Given 06/28/2006 Flu, Split Virus 3Yrs 61164 Given 07/27/2003 Flu, Split Virus 3Yrs 89076 Given 04/10/2001 Poliomyelitis Immunization 74331 Given 04/10/2001 MMR Virus Immunization 00446 Given 04/10/2001 Dtap Immunization (Tripedia) (Infanrix) 76947 Given 05/24/1998 Poliomyelitis Immunization 15777 Given 05/24/1998 Dtap Immunization (Tripedia) (Infanrix) 04384 Given 02/02/1998 Varicella (Chicken Pox) Immunization 25427 Given 02/02/1998 MMR Virus Immunization 80730 Given 04/06/1997 Hep B Immunization, Ped/Adolescent To 11 Yrs 88260 Given 04/06/1997 Dtap Immunization (Tripedia) (Infanrix) 51792 Given 04/04/1997 3 dose Hib (PRP-Omp) 60033 Given 02/09/1997 Dtap Immunization (Tripedia) (Infanrix) 71442 Given 02/09/1997 3 dose Hib (PRP-Omp) 90596 Given 02/09/1997 Poliomyelitis Immunization 24020 Given 1996 Hep B Immunization, Ped/Adolescent To 11 Yrs 14306 Given 1996 Poliomyelitis Immunization 55037 Given 1996 Dtap Immunization (Tripedia) (Infanrix) 67388 Given 1996 3 dose Hib (PRP-Omp) 54527 Given 1996 Hep B Immunization, Ped/Adolescent To 11 Yrs 25876 Refused 06/15/2013 Gardasil HPV vaccine Vital Signs [...] Result H/L Range Note Rapid Influenza 11/12/2019 [facility] Influenza A Negative Negative A & B Molecular [phone] Molecular Influenza B Molecular Negative Negative 1 Laboratory test 09/08/2019 [facility] TSH (Thyroid 1.09 mcIU/mL Normal 0.34-5.60 finding [phone] Stim Horm) Thyroxine 7.62 g/dL Normal 6.09-12.23 T3 Total 111 ng/dL Normal 87-178 T3 Free 3.40 pg/mL Normal 2.5-3.9 Laboratory 07/08/2019 [facility] Lactic 2.5 Critical 0.4- 1.9 2, 3 test finding LABORATORY Acid mmol/L high [phone] Lactic Acid 07/08/2019 [facility]. Lactic 2.0 Critical 0.4- 1.9 LABORATORY Acid mmol/L high [phone] Lab Reflex >2.0 for Sepsis? Y CBC 07/08/2019 [facility]. White Blood Count 7.4 K/uL Normal 3.4-10.5 LABORATORY [phone] Red Blood Count 4.88 M/uL Normal 4.20-5.80 [...] < 10/ 100 WBC Basic Metabolic 07/08/2019 [facility] Glucose 116 mg/dL High 74-106 Panel LABORATORY [phone] BUN 11 mg/dL Normal 7-18 Creatinine 0.8 mg/dL Normal 0.6-1.3 Glom Filtration Rate, Estimate >60 mL/min >60 If >60 mL/min >60 4 BUN/Creat 13.7 ratio Sodium 139 mmol/L Normal 136-145 Potassium 4.1 mmol/L Normal 3.5-5.1 Chloride 107 mmol/L Normal 98-107 Carbon Dioxide 25 mmol/L Normal 21-32 Anion Gap 7 mEq/L Low 8-16 Calcium 8.8 mg/dL Normal 8.5-10.1 Differential-WBC 07/07/2019 [facility] Total Cells 100 #CELLS Confirm LABORATORY Counted [phone] Neutrophils% 68 % Normal 33-73 Lymph% 24 % Normal 20-42 Monocyte% 8 % Normal 0-10 Platelet Estimate NORMAL Toxic Granulation 0-1+ Laboratory test 07/07/2019 [facility]. Slide Review DIFF ORDERED finding LABORATORY [phone] CBS W/Automated 07/07/2019 [facility]. White Blood 6.3 K/uL Normal 3.4-1 Diff LABORATORY Count 0.5 [phone] Red Blood Count 4.54 M/uL Normal 4.20-5.80 [...] 33.0-73.0 Lymph % 17.9 % Low 20.0-42.0 [place]gard % 13.1 % High 0.0-10.0 Eo% 0.0 % Normal 0.0-6.6 Bas% 0.0 % Normal 0.0-1.1 Immature Grans 0.5 % Normal 0.0-5.0 NRBC % 0.0 /100WBC < 10/ 100 WBC Neut# 4.28 K/uL Normal 1.8-7.0 Lymph # 1.12 K/uL Normal 1.0-4.0 Bea[place]gard # 0.82 K/uL High 0.0-0.8 Eos # 0.00 K/uL Normal 0.0-0.5 Baso # 0.00 K/uL Normal 0.0-0.1 Immature Grans Absolute 0.03 K/uL NRBC # 0.00 K/uL Basic Metabolic 07/07/2019 [facility]. Glucose 121 mg/dL High 74-106 Panel LABORATORY [phone] BUN 8 mg/dL Normal 7-18 Creatinine 0.9 mg/dL Normal 0.6-1.3 Glom Filtration Rate, Estimate >60 mL/min >60 If >60 mL/min >60 5 BUN/Creat 8.8 ratio Sodium 142 mmol/L Normal 136-145 Potassium 3.8 mmol/L Normal 3.5-5.1 Chloride 111 mmol/L High 98-107 Carbon Dioxide 24 mmol/L Normal 21-32 Anion Gap 7 mEq/L Low 8-16 Calcium 8.6 mg/dL Normal 8.5-10.1 Aot Request 07/07/2019 [facility]. Aot Request Unable to add te 6 LABORATORY <SEE NOTE> [phone] Tests to be added: lactic acid leve <SEE NOTE> 7 Instructions: pls do if not do <SEE NOTE> 8 Lactic Acid 07/07/2019 [facility] Lactic Acid 3.1 mmol/L Critical 0.4-1.9 LABORATORY high [phone] Lab Reflex >2.0 for Sepsis? N Lactic Acid 07/07/2019 [facility] Lactic Acid 2.9 mmol/L Critical 0.4-1.9 LABORATORY high [phone] Lab Reflex >2.0 for Sepsis? Y Laboratory 07/07/2019 [facility] Lactic 3.1 mmol/L Critical 0.4-1.9 9 test finding LABORATORY Acid high [phone] Laboratory 07/06/2019 [facility] Lactic 2.9 mmol/L Critical 0.4-1.9 test finding LABORATORY Acid high [phone] Lactic Acid 07/06/2019 [facility] Lactic 4.1 mmol/L Critical 0.4-1.9 LABORATORY Acid high [phone] Lab Reflex >2.0 for Sepsis? Y Laboratory 07/06/2019 [facility] Lactic Acid 3.0 mmol/L Critical 0.4-1.9 test finding LABORATORY high [phone] Influenza A/B 07/06/2019 [facility]. Influenza A POSITIVE Abnormal (Negative 10 Antigen LABORATORY Antigen ) [phone] Influenza B Antigen Negative (Negative) 11 Lactic Acid 07/06/2019 [facility] Lactic Acid 2.4 mmol/L Critical 0.4-1.9 LABORATORY high [phone] Lab Reflex >2.0 for Sepsis? Y Laboratory 07/06/2019 [facility] Legionella Negative Negative 12 test finding LABORATORY Urinary [phone] Antigen Blood Culture 07/06/2019 [facility]. Blood Culture NO GROWTH: 13, LABORATORY Aerobic FINAL <SEE 14 [phone] NOTE> Blood Culture Anaerobic NO GROWTH: FINAL <SEE NOTE> 15 CBS W/Automated 07/06/2019 [facility] White 5.9 K/uL Normal 3.4-10.5 16 Diff LABORATORY Blood [phone] Count Red Blood Count 4.99 M/uL Normal [...] 33.0-73.0 Lymph % 14.5 % Low 20.0-42.0 Bea[place]gard % 10.5 % High 0.0-10.0 Eo% 1.0 % Normal 0.0-6.6 Bas% 0.5 % Normal 0.0-1.1 Immature Grans 0.5 % Normal 0.0-5.0 NRBC % 0.0 /100WBC < 10/ 100 WBC Neut# 4.32 K/uL Normal 1.8-7.0 Lymph # 0.86 K/uL Low 1.0-4.0 Bea[place]gard # 0.62 K/uL Normal 0.0-0.8 Eos # 0.06 K/uL Normal 0.0-0.5 Baso # 0.03 K/uL Normal 0.0-0.1 Immature Grans Absolute 0.03 K/uL NRBC # 0.00 K/uL Comprehensive 07/06/2019 [facility] Glucose 103 mg/dL Normal 74-106 Metabolic Panel LABORATORY [phone] BUN 16 mg/dL Normal 7-18 Creatinine 1.3 [...] Alkaline Phosphatase 75 U/L Normal 45-117 1 [employer] Compliance Specialist: [id number] CAP, INFLU A, ACUTE HRF 3 [...] influenza A and B molecular assay. Method: [employer] Chromatographic immunoassay 12 Presumptive negative for L. [...] suggested. Procedures Date Code Description Status 07/17/2019 96947 Brief Emotional/Behav Assessment W/ Scoring Doc Per [...] Office Visit 07/17/2019 11:20a Main Office Minal [place], J18.9 Pneumonia, P.A. unspecified organism J45.20 Mild [...] Adjustment disorder with mixed anxiety and [place], P.A. depressed mood 08/11/2019 J45.20 Mild intermittent asthma, uncomplicated Minal [place], P.A. 08/11/2019 J30.9 Allergic rhinitis, unspecified Minal [place], P.A. 07/17/2019 J18.9 Pneumonia, unspecified organism Minal [place], P.A. 07/17/2019 J45.20 Mild intermittent asthma, uncomplicated Minal [place], P.A. 07/17/2019 J30.9 Allergic rhinitis, unspecified Minal [place], P.A. 07/17/2019 F43.23 Adjustment disorder with mixed anxiety and Minal [place], P.A. depressed mood 07/17/2019 Z23 Encounter for immunization Minal [place], P.A. 07/17/2019 Z13.31 Encounter for screening for depression Minal [place], P.A. 07/10/2019 J45.901 Unspecified asthma with (acute) exacerbation Minal [place], P.A. 07/10/2019 J18.9 Pneumonia, unspecified organism Gladys Knight 07/10/2019 I10 Essential (primary) hypertension Gladys Knight 07/01/2019 J45.901 Unspecified asthma with (acute) exacerbation Angelique Wylie PA 07/01/2019 J20.9 Acute bronchitis, unspecified Angelique Wylie PA 07/01/2019 Z68.27 Body mass index (BMI) 27.0-27.9, adult Angelique Wylie PA Plan of Treatment Future Appointment(s):09/12/2020 9:00 am - Roseline Beltran MD at Main [id number] - Brice Burris D.O.J45.20 Mild intermittent asthma, uncomplicatedFollow up:As scheduled in September for well visit. Functional Status Description No Information Available Mental Status Description No Information Available Referrals Description No Information Available
--- NOTE | 2019-12-09 13:11 | UC ---
Respiratory Complaint HPI - HPI Summary HPI Summary: 24 yo with asthma with onset of cough and congestion today, with chest feeling tight, nausea, and myalgias. He is uncertain if he has a fever. Lives with his family, and his brother with similar symptoms was seen here 2 days ago and tested for COVID. Results are still pending. Brother remains afebrile, and is neither better nor worse than at the onset. Hx of admission to [facility] late last fall with flu and sepsis. Hx of asthma, but does not regular use inhalers. In the past he did take advair for maintenance, but not in some years. - History of Current Complaint Chief Complaint: UCGeneralIllness Stated Complaint: COUGH,CONGESTION,FATIGUE,ASTHMA Time Seen by Provider: 12/09/19 13:04 Hx Obtained From: Patient Onset/Duration: Sudden Onset, Lasting Hours Timing: Constant Severity Initially: Moderate Severity Currently: Moderate Pain Intensity: 4 Character: Cough: Nonproductive Aggravating Factors: Exertion Alleviating Factors: Nothing - has not used albuterol yet Associated Signs And Symptoms: Positive: Dyspnea, Nasal Congestion - Risk Factors Pulmonary Embolism Risk Factors: Negative Cardiac Risk Factors: Negative Pseudomonas Risk Factors: Negative Tuberculosis Risk Factors: Negative - Allergies/Home Medications Allergies/Adverse Reactions: Allergies Allergy/AdvReac Type Severity Reaction Status Date / Time almond Allergy Rash, Verified 12/09/19 13:01 Swelling of the Face, Lips, and Throat banana Allergy Anaphylatic Verified 12/09/19 13:01 Shock clindamycin Allergy Rash Verified 12/09/19 13:01 erythromycin base Allergy Rash Verified 12/09/19 13:01 pecan nut Allergy Rash, Verified 12/09/19 13:01 Swelling of the Face, Lips, and Throat walnut Allergy Rash, Verified 12/09/19 13:01 Swelling of the Face, Lips, and Throat Home Medications: Home Medications Albuterol HFA INHALER* [Proair HFA Inhaler*] 2 puff INH Q6H PRN 07/31/12 [ History Confirmed 12/09/19] EPINEPHrine PEN ADULT(NF) [Epipen*] 0.3 mg IM ONCE 07/31/12 [History Confirmed 12/09/19] Albuterol 2.5MG/3ML (0.083%)* [Ventolin 2.5 MG/3 ML NEB.LANDRY*] 2.5 mg INH Q6H PRN 11/12/19 [History Confirmed 12/09/19] Azithromyxin RISHABH (NF) [Z-Rishabh (Zithromax) 250 mg tabs #6] 2 tab PO .TODAY, THEN 1 DAILY #6 tab 12/09/19 [Rx] PMH/Surg Hx/FS Hx/Imm Hx Respiratory History: Asthma, Pneumonia - Surgical History Surgical History: Yes Surgery Procedure, Year, and Place: T&A, ~2006, [place] - Family History Known Family History: Positive: Diabetes - father Family History: Denies significant FMH - Social History Occupation: Employed Full-time - currently furloughed Lives: With Family Alcohol Use: Rare Substance Use Type: None Smoking Status (MU): Former Smoker Type: eCigarettes When Did the Patient Quit Smoking/Using Tobacco: 1 year ago - Immunization History Vaccination Up to Date: Yes Review of Systems All Other Systems Reviewed And Are Negative: Yes Constitutional: Positive: Fatigue Skin: Positive: Negative Eyes: Positive: Negative ENT: Positive: Sore Throat, Ear Ache Respiratory: Positive: Shortness Of Breath, Cough Cardiovascular: Positive: Negative Gastrointestinal: Positive: Nausea Genitourinary: Positive: Negative Motor: Positive: Negative Neurovascular: Positive: Negative Musculoskeletal: Positive: Myalgia Neurological/Mental Status: Positive: Negative Psychological: Positive: Negative Is Patient Immunocompromised?: No Physical Exam Triage Information Reviewed: Yes Appearance: Well-Nourished, Ill-Appearing - looks mildly unwell Eyes: Positive: Conjunctiva Clear ENT: Positive: Pharyngeal erythema, TMs normal. Negative: Tonsillar swelling - past tonsillectomy Neck: Positive: Supple, Nontender, No Lymphadenopathy Respiratory: Positive: No respiratory distress, Decreased breath sounds, Wheezing Cardiovascular: Positive: RRR, No Murmur. Negative: Tachycardia Musculoskeletal Exam: Normal Neurological Exam: Normal Psychological Exam: Normal Skin Exam: Normal Diagnostics - Laboratory Lab Results: Testing for COVID and influenza done by with full PPE. Rapid flu negative. Respiratory Course/Dx - Course Course Of Treatment: given wheeze, congested cough and history, azithromycin was prescribed to treat possible LRTI. Advised to use albuterol, use acetaminophen or ibuprofnen as needed for fever, isolate at home pending results. - Differential Dx/Diagnosis Differential Diagnosis/HQI/PQRI: Asthma, Bronchitis, Laryngitis, Lower Resp Infection, Other - COVID Provider Diagnosis: Bronchitis Discharge ED - Sign-Out/Discharge Documenting (check all that apply): Patient Departure All imaging exams completed and their final reports reviewed: No Studies - Discharge Plan Condition: Stable Disposition: HOME Prescriptions: Azithromyxin RISHABH (NF) [Z-Rishabh (Zithromax) 250 mg tabs #6] 2 tab PO .TODAY, THEN 1 DAILY #6 tab Patient Education Materials: Acute Bronchitis (ED) Forms: COVID-19 Tested & Isolation Referrals: Brice Burris DO [Primary Care Provider] - Additional Instructions: Testing for COVID will take several days, and you will be called with the results. Tests can take up to 7 days to be reported, currently we are averaging about 3 to 4 days. Take the full course of azithromucin, and use albuterol up to 4 times per day to decrease cough and wheeze. Follow up if you have increasing fever or increasing shortness of breath. [place] isolate pending the results of the COVID testing. Please ahve a family member car pick up driver your medication from the pharmacy. - Billing Disposition and Condition Condition: STABLE Disposition: Home
[2019-12-09 13:35] VITALS: BP 146/97
[2019-12-09 13:37] LABS: Influenza A Molecular Negative (Negative); Influenza B Molecular Negative (Negative)
--- NOTE | 2019-12-13 09:36 | UC ---
- Progress Note Progress Note: Covid results from December 10, 2019 come back as undetected. Patient call patient inform the patient of the results. Course/Dx - Diagnoses Provider Diagnoses: Bronchitis Discharge ED - Sign-Out/Discharge Documenting (check all that apply): Patient Departure All imaging exams completed and their final reports reviewed: No Studies - Discharge Plan Condition: Stable Disposition: HOME Prescriptions: Azithromyxin PARI (NF) [Z-Pari (Zithromax) 250 mg tabs #6] 2 tab PO .TODAY, THEN 1 DAILY #6 tab Patient Education Materials: Acute Bronchitis (ED) Forms: COVID-19 Tested & Isolation Referrals: Brice Burris DO [Primary Care Provider] - Additional Instructions: Testing for COVID will take several days, and you will be called with the results. Tests can take up to 7 days to be reported, currently we are averaging about 3 to 4 days. Take the full course of azithromucin, and use albuterol up to 4 times per day to decrease cough and wheeze. Follow up if you have increasing fever or increasing shortness of breath. [place] isolate pending the results of the COVID testing. Please ahve a family member fiber picker your medication from the pharmacy. - Billing Disposition and Condition Condition: STABLE Disposition: Home
== END 2019-12-09 13:52 | disposition home or self-care (01) ==
LOC: UCCORT 12:48
DX: J40 Bronchitis, not specified as acute or chronic (principal); Z20.828 Contact with and (suspected) exposure to other viral communicable diseases; Z88.1 Allergy status to other antibiotic agents; Z91.018 Allergy to other foods; Z87.891 Personal history of nicotine dependence
CPT/HCPCS: 87635; 99212; G0463; G2023